=== PATIENT | male | born 1970 | race Asian ===

== ENCOUNTER 2017-01-13 20:38 | Emergency (ER) | payer SELFPAY ==
[~2017-01-13] VITALS: Ht 177.8 cm; Wt 59.9 kg
[2017-01-13 20:53] VITALS: BP_SYST 117
--- NOTE | 2017-01-13 22:45 | NUR ---
Placed in room 03 . Placed on equipment monitor phototypesetting, blood pressure machine and pulse oximeter. To gown for exam. Side rails up. Report given to LARISSA Shook.
--- NOTE | 2017-01-13 22:50 | NUR ---
Pt states having pain in his R foot that radiates up R leg, and ends immediately before the groin area. Pt denies any mechanism of fall prior to ER visit. Generalized redness and swelling noted to R foot, pt states having generalized irritation sensation to R leg. Pt denies any other complaints.
--- NOTE | 2017-01-13 23:06 | NUR ---
ER Dr. Adames at bedside examining patient.
[2017-01-13] MEDS ORDERED: AMPICILLIN SODIUM/SULBACTAM NA 3 GM in NS 100 ML IV ONE (23:15)
[2017-01-13 23:35] LABS: BASOPHILS % (AUTO) 0.5 % (0.0-2.0); EOSINOPHILS # (AUTO) 0.1 K/uL (0.0-0.4); EOSINOPHILS % (AUTO) 1.2 % (0.0-4.0); HEMATOCRIT 42.8 % (36-54); HEMOGLOBIN 13.9 g/dL (14.0-18.0); LYMPHOCYTES # (AUTO) 1.6 K/uL (1.0-5.5); LYMPHOCYTES % (AUTO) 17.7 % (20.5-51.5); MEAN CORPUSCULAR HEMOGLOBIN 28 pg (27-31); MEAN CORPUSCULAR HGB CONC 33 % (32-36); MEAN CORPUSCULAR VOLUME 87 fL (79.0-98.0); MONOCYTES # (AUTO) 0.5 K/uL (0.0-1.0); MONOCYTES % (AUTO) 5.4 % (1.7-9.3); NEUTROPHILS # (AUTO) 6.8 K/uL (1.8-7.7); NEUTROPHILS % (AUTO) 75.2 % (40.0-70.0); PLATELET COUNT (AUTO) 209 K/uL (130-430); RED BLOOD CELL COUNT(AUTO) 4.93 MIL/uL (4.2-6.2); RED CELL DISTRIBUTION WIDTH 13.6 % (9.0-15.0)
[2017-01-13 23:46] LABS: CALCIUM 8.9 mg/dL (8.4-11.0); CREATININE 0.99 mg/dL (0.55-1.30); POTASSIUM 4.2 mmol/L (3.5-5.1)
[2017-01-13 23:51] LABS: ALBUMIN 3.8 g/dL (3.4-4.8); TOTAL PROTEIN, SERUM 7.2 g/dL (6.4-8.3)
[2017-01-14] MEDS ORDERED: AMPICILLIN SODIUM/SULBACTAM NA 3 GM VIAL ONE ×2 (00:14→00:35)
[2017-01-14 00:23] LABS: ERYTHROCYTE SEDIMENTATION RATE 5 MM/HR (0-15)
--- NOTE | 2017-01-14 00:34 | NUR ---
No adverse effects to medications noted. Will continue to monitor pt.
[2017-01-14 01:00] VITALS: BP_SYST 116
--- NOTE | 2017-01-14 01:00 | NUR ---
Patient given written and verbal discharge instructions and verbalizes understanding. ER MD discussed with patient the results and treatment provided. Patient in stable condition. ID arm band removed. IV catheter removed intact and dressing applied, no active bleeding. Rx of Rocephin and Tylenol given. Patient educated on pain management and to follow up with PMD. Pain Scale 0/10. Opportunity for questions provided and answered.
== END 2017-01-14 01:00 | disposition home or self-care (01) ==
LOC: SED 20:38
DX: I80.299 Phlebitis and thrombophlebitis of other deep vessels of unspecified lower extremity (principal); L03.115 Cellulitis of right lower limb; F17.210 Nicotine dependence, cigarettes, uncomplicated
CPT/HCPCS: 36415; 80053; 83605; 85025; 85651; 87040; 96365; 99284; J0295